=== PATIENT | male | born 1940 | race Caucasian/White ===

== ENCOUNTER → 2023-10-20 | Outpatient (CLI) | payer OTHER ==
[~2023-10-20] MED LIST: COMPLETE MULTI1 TAB PO; COZAAR100 MG PO; DIABETA 5MG5 MG/TAB PO; FERROUS SU325 MG/TAB PO; GLUCOPHAGE500 MG/TAB PO; Iohexol 300 - 100 ML VIAL IV ONE; NESINA25 PO; NS 100 ML IV SCH; ROXICODONE 55 MG/TAB PO; VTAMINC250TA PO; ZOCOR 80MG80 MG PO
== END ==
LOC: COL.RAD 09:00
DX: C17.2 Malignant neoplasm of ileum (principal)
CPT/HCPCS: Q9967

== ENCOUNTER → 2024-04-19 | Outpatient (CLI) | payer OTHER | LOC: COL.RAD 07:56 | DX: C17.2 Malignant neoplasm of ileum (principal); Z98.890 Other specified postprocedural states | CPT/HCPCS: Q9967 ==